=== PATIENT | female | born 1945 | race Two or more races ===

== ENCOUNTER 2016-10-25 20:08 | Emergency (ER) | payer MEDICARE, MEDICAID ==
[~2016-10-25] VITALS: Ht 157.5 cm; Wt 58.1 kg
[2016-10-25 20:52] LABS: BASOPHILS # (AUTO) 0.1 /CMM (0.0-0.2); BASOPHILS % (AUTO) 1.1 % (0.0-2.0); DIFF TOTAL % 100 %; EOSINOPHILS # (AUTO) 0.3 /CMM (0.0-0.7); EOSINOPHILS % (AUTO) 4.4 % (0.0-6.0); HEMATOCRIT 39 % (33-45); HEMOGLOBIN 13.2 g/dL (11.5-14.8); LYMPHOCYTES # (AUTO) 3.4 /CMM (0.8-4.8); LYMPHOCYTES % (AUTO) 53.1 % (20.0-44.0); MEAN CORPUSCULAR HEMOGLOBIN 28 PG (26.0-33.0); MEAN CORPUSCULAR HGB CONC 33 g/dl (31.0-36.0); MEAN CORPUSCULAR VOLUME 84 fL (82-100); MONOCYTES # (AUTO) 0.5 /CMM (0.1-1.30); MONOCYTES % (AUTO) 8.2 % (2.0-12.0); NEUTROPHILS # (AUTO) 2.1 /CMM (1.8-8.9); NEUTROPHILS % (AUTO) 33.2 % (43.0-81.0); PLATELET COUNT (AUTO) 304 /CMM (150-450); RED BLOOD CELL COUNT(AUTO) 4.68 MIL/uL (4.0-5.2); WHITE BLOOD COUNT (AUTO) 6.4 K/uL (4.3-11.0)
[2016-10-25 20:59] LABS: CREATININE 0.8 mg/dL (0.6-1.3); POTASSIUM 3.8 mmol/L (3.5-5.1)
[2016-10-25] MEDS ORDERED: ONDANSETRON HCL/PF 4 MG/2 ML VIAL IVP ONE (21:00)
[2016-10-25] MEDS ORDERED: IV NS 0.9% 500 ML BAG IV ONE (21:00)
[2016-10-25] MEDS ORDERED: ONDANSETRON HCL/PF 4 MG/2 ML VIAL ONE (21:14)
[2016-10-25] MEDS ORDERED: IV SET PRIMARY 1 EA INFUS.SET MC ONE (21:15)
[2016-10-25] MEDS ORDERED: IV NS 0.9% 500 ML IV ONE (21:15)
[2016-10-25 22:45] VITALS: BP 137/76
== END 2016-10-25 22:45 | disposition home or self-care (01) ==
LOC: ER 20:10 → EDSEX 20:10 → ER 22:45
DX: R11.2 Nausea with vomiting, unspecified (principal); G62.9 Polyneuropathy, unspecified; F32.9 Major depressive disorder, single episode, unspecified; E03.9 Hypothyroidism, unspecified; I50.9 Heart failure, unspecified
CPT/HCPCS: 36415; 71010; 80048; 85025; 96374; 99285; A4606; J2405; J7040; Z7610

== ENCOUNTER 2017-11-05 09:29 | Inpatient (IN) | payer MEDICARE, MEDICAID ==
[~2017-11-05] VITALS: Ht 160 cm; Wt 59.9 kg
--- NOTE | 2017-11-05 09:32 | NUR ---
[id number] FROM [facility]: ALOC, LAST SEEN WELL TODAY 0900AM. BS IN FIELD 105. PATIENT IS A/OX 1, BREATHING EVEN AND UNLABORED. BUE AND BLE WEAKNESS. VITALS STABLE. SAFETY AND COMFORT MEASURSE IN PLACE. MD AT BEDSIDE, CODE STROKE INITIATED.
--- NOTE | 2017-11-05 09:38 | NUR ---
PATIENT TAKEN TO CT VIA STRETCHER.
--- NOTE | 2017-11-05 09:43 | NUR ---
PATIENT RETURNED FROM CT IN STABLE CONDITION.
--- NOTE | 2017-11-05 09:45 | NUR ---
Note [email or web address] in EDM - 11/05/17 at 1031 by GISSELLE [id number] FROM [facility]: JAMES, LAST SEEN WELL TODAY 0900AM. BS IN FIELD 105. PATIENT IS A/OX 1, BREATHING EVEN AND UNLABORED. BUE AND BLE WEAKNESS. VITALS STABLE. SAFETY AND COMFORT MEASURSE IN PLACE. MD AT BEDSIDE, CODE STROKE INITIATED.
[2017-11-05] MEDS ORDERED: ACETAMINOPHEN 650 MG/SUPP.RECT RC ONE ×2 (10:00→10:05)
[2017-11-05] MEDS ORDERED: MEROPENEM 1 G in IV NS 0.9% 100 ML IV ONE (10:00)
[2017-11-05] MEDS ORDERED: IV NS 0.9% 500 ML BAG IV ONE (10:00)
--- NOTE | 2017-11-05 10:00 | NUR ---
NEW IV STARTED ON RAC, 18 G. BLOOD DRAWN AND SENT TO LAB.
[2017-11-05 10:04] LABS: BASOPHILS # (AUTO) 0.1 /CMM (0.0-0.2); BASOPHILS % (AUTO) 0.7 % (0.0-2.0); EOSINOPHILS # (AUTO) 0.1 /CMM (0.0-0.7); EOSINOPHILS % (AUTO) 0.6 % (0.0-6.0); HEMATOCRIT 47 % (33-45); HEMOGLOBIN 16.4 g/dL (11.5-14.8); LYMPHOCYTES # (AUTO) 1.8 /CMM (0.8-4.8); LYMPHOCYTES % (AUTO) 11.1 % (20.0-44.0); MEAN CORPUSCULAR HEMOGLOBIN 30 PG (26.0-33.0); MEAN CORPUSCULAR HGB CONC 35 g/dl (31.0-36.0); MEAN CORPUSCULAR VOLUME 84 fL (82-100); MONOCYTES # (AUTO) 0.8 /CMM (0.1-1.30); NEUTROPHILS # (AUTO) 13.6 /CMM (1.8-8.9); NEUTROPHILS % (AUTO) 82.6 % (43.0-81.0); PLATELET COUNT (AUTO) 260 /CMM (150-450); RDW COEFFICIENT OF VARIATION 13.2 (11.5-15.0); RED BLOOD CELL COUNT(AUTO) 5.56 MIL/uL (4.0-5.2); WHITE BLOOD COUNT (AUTO) 16.4 K/uL (4.3-11.0)
[2017-11-05 10:19] LABS: CALCIUM, SERUM 9.3 mg/dL (8.5-10.1); CARBON DIOXIDE 28 mmol/L (21-32); CHLORIDE 95 mmol/L (98-107); CREATININE 2.4 mg/dL (0.6-1.3); GLUCOSE 101 mg/dL (74-106); INR 1.01 (0.85-1.15); POTASSIUM 3.3 mmol/L (3.5-5.1); SODIUM SERUM 139 mmol/L (136-145); UREA NITROGEN, BLOOD 21 mg/dL (7-18)
--- NOTE | 2017-11-05 10:20 | NUR ---
URINE OBTAINED AND SENT TO LAB.
[2017-11-05 10:24] LABS: ALANINE AMINOTRANSFERASE 32 U/L (12-78); ALKALINE PHOSPHATASE 103 U/L (46-116); BILIRUBIN,DIRECT 0.1 mg/dL (0.0-0.2); BILIRUBIN,TOTAL 0.6 mg/dL (0.2-1.0); TOTAL PROTEIN, SERUM 9.8 g/dL (6.4-8.2)
[2017-11-05] MEDS ORDERED: IV NS 0.9% 1,000 ML BAG IV ONE (10:30)
[2017-11-05 10:33] LABS: TROPONIN I 4.839 ng/mL (0.00-0.056)
--- NOTE | 2017-11-05 10:45 | NUR ---
PANEL ON-CALL PAGED
--- NOTE | 2017-11-05 10:48 | NUR ---
Tirso collier in [facility] - 11/05/17 at 1140 by GISSELLE BRAILLE AND TALKING BOOKS CLERK AT BEDSIDE FOR BLOOD DRAW.
[2017-11-05] MEDS ORDERED: VANCOMYCIN 1 GM in IV D5W 250 ML IV ONE (11:00)
[2017-11-05] MEDS ORDERED: ASCO10007 PO (11:15)
[2017-11-05] MEDS ORDERED: MAGN400O6 PO (11:15)
[2017-11-05] MEDS ORDERED: TRAM50TA PO (11:15)
[2017-11-05] MEDS ORDERED: GABA-534 PO (11:15)
[2017-11-05] MEDS ORDERED: ACID1CAP3 PO (11:15)
[2017-11-05] MEDS ORDERED: ONDA4TAB5 PO (11:15)
[2017-11-05] MEDS ORDERED: IBUP-1953 PO (11:15)
[2017-11-05] MEDS ORDERED: MAGN400T6 PO (11:15)
[2017-11-05] MEDS ORDERED: BISA10SU61 RC (11:15)
[2017-11-05] MEDS ORDERED: NA P133E RC (11:15)
[2017-11-05] MEDS ORDERED: ACET325T53 PO (11:15)
[2017-11-05] MEDS ORDERED: MONT10TA22 PO (11:15)
[2017-11-05] MEDS ORDERED: VITA100014 PO (11:19)
[2017-11-05] MEDS ORDERED: CALC-261 PO (11:19)
--- NOTE | 2017-11-05 11:20 | NUR ---
325-2, [facility] T[facility]RES FOR REPORT.
--- NOTE | 2017-11-05 11:26 | NUR ---
REPORT GIVEN TO BRIAN ESQUIVEL FOR GWYN UPON ADMISSION.
[2017-11-05 11:33] LABS: ASPARTATE AMINOTRANSFERASE 86 U/L (15-37); CHOLESTEROL 172 mg/dL (<200); HDL CHOLESTEROL 45 mg/dL (40-60); LDL 113 mg/dL (0-99); TRIGLYCERIDES 96 mg/dL (30-150)
[2017-11-05 11:33] LABS: APPEARANCE,URINE Slightly Cloudy (CLEAR); BILIRUBIN,URINE Negative (NEGATIVE); BLOOD, URINE Trace-intact Ery/uL (NEGATIVE); COLOR,URINE Yellow (YELLOW); KETONES,URINE Negative (NEGATIVE); LEUKOCYTE ESTERASE ,URINE Negative (NEGATIVE); NITRITE, URINE Negative (NEGATIVE); PROTEIN,URINE 100 mg/dl (NEGATIVE); UGLUCOSE Negative (NEGATIVE); UROBILINOGEN,URINE 0.2 EU/dL (0.2)
[2017-11-05 11:41] LABS: BACTERIA,URINE Rare /HPF (None Seen); SQUAMOUS EPITHELIAL CELL,UR Few /HPF (None Seen)
[2017-11-05 11:42] LABS: WBC,URINE 20-30 /HPF (0-3)
--- NOTE | 2017-11-05 12:05 | NUR ---
PATIENT TRANSPORTED TO [facility] VIA ACLS PROTOCOL. RNBRIAN TO PROVIDE GWYN.
[2017-11-05 12:20] VITALS: BP 140/54
[2017-11-05] MEDS ORDERED: BISACODYL SUPP (10 MG) 10 MG/SUPP.RECT SUPP.RECT RC PRN (13:00)
[2017-11-05] MEDS ORDERED: Z GUARD REMEDY 2 OZ OINT TP PRN (13:00)
[2017-11-05] MEDS ORDERED: ACETAMINOPHEN 325 MG TABLET PO PRN (13:00)
[2017-11-05] MEDS ORDERED: ONDANSETRON HCL/PF 4 MG/2 ML VIAL IVP PRN (13:00)
[2017-11-05] MEDS ORDERED: MAGNESIUM HYDROXIDE 30 ML UDC PO PRN (13:00)
[2017-11-05] MEDS ORDERED: IV NS 0.9% 1,000 ML IV SCH (13:00)
[2017-11-05] MEDS ORDERED: TRAMADOL HCL 50 MG TABLET PO PRN (13:00)
[2017-11-05] MEDS ORDERED: VANCOMYCIN 1.25 GM in IV D5W 500 ML IV SCH (13:00)
[2017-11-05] MEDS ORDERED: MAG HYDROX/AL HYDROX/SIMETH 30 ML UDC PO PRN (13:00)
[2017-11-05] MEDS ORDERED: HYDROCODONE/APAP 5/325MG 1 EACH TABLET PO PRN (13:00)
[2017-11-05 13:30] VITALS: BP 140/54
--- NOTE | 2017-11-05 13:30 | NUR ---
ADMISSION NOTES PATIENT ADMITTED FROM ER FEMALE 72 Y/OLD ON TELE, ON Dx OF SEPSIS. TELE MONITOR ON SR-92, PATIENT A/O X1/2, CONFUSED. V/S TAKEN BP-140/54, P-93, R-29, O2-100 ON 3L NC, T-99.1. SKIN ASSESSMENT DONE, SKIN CLEAR. PATIENT INCONTINENT USING DIAPER. NEEDS ATTENDED ND ANTICIPATED, INFUSING NS AT 100ML/HR RIGHT UPPER ARM INTACT. PATIENT DENIED PAIN AT THIS TIME, SCHEDULED MEDICATION ADMINISTERED. DR VASQUEZ AWARE OF NE PATIENT, AND MEDICATION. CALL LIGHT WITHIN TO REACH. CONTINUED MONITORING.
[2017-11-05] MEDS ORDERED: FEE PK DOSING 1 MIN EA MC ONE (13:37)
[2017-11-05] MEDS: ASPIRIN 81 MG TAB.CHEW PO SCH (13:58)
[2017-11-05] MEDS: IV NS 0.9% 1,000 ML IV PRN ×2 (13:59→23:14)
[2017-11-05 16:06] VITALS: BP 125/80
--- NOTE | 2017-11-05 17:00 | NUR ---
RN NOTES PATIENT ON O2-3L NC, NO ACUTE RESPIRATORY DISTRESS, V/S TAKEN BP- 95/54, SCHEDULED MEDICATION ADMINISTERED, ASSIST EATING, PATIENT TURN AND REPOSTION SELF IN THE BED, NEEDS ATTENDED AND ANTICIPATED, INFUSING NS AT 150 ML/HE INTACT, CALL LIGHT WITHIN TO REACH, CONTINUED MONITORING.
[2017-11-05] MEDS ORDERED: CLOPIDOGREL BISULFATE 75 MG TABLET PO ONE (17:30)
[2017-11-05] MEDS: PIPERACILLIN /TAZOBACTAM 2.25 G in IV D5W 50 ML IV SCH ×2 (17:49→23:21)
[2017-11-05] MEDS: GABAPENTIN 300 MG CAPSULE PO SCH (17:52)
[2017-11-05] MEDS ORDERED: ENOXAPARIN SODIUM 30 MG/0.3 ML DISP.SYRIN SQ SCH (18:00)
[2017-11-05] MEDS ORDERED: PIPERACILLIN /TAZOBACTAM 3.375 G in IV NS 0.9% 50 ML IV SCH (18:00)
--- NOTE | 2017-11-05 18:40 | NUR ---
RN NOTES PATIENT STABLE AT THIS TIME, NO ACUTE RESPIRATORY DISTRESS. ENDORSED ONCOMING NURSE FOR GWYN.
--- NOTE | 2017-11-05 19:45 | NUR ---
RN OPENING NOTES PATIENT IS SLEEPING IN BED, EASY TO AROUSE, ALERT AND ORIENTED X2. VS STABLE. NO PAIN OR DISCOMFORT NOTED AT THIS TIME. RESPIRATIONS EVEN AND UNLABORED. NO SOB. IV ACCESS ON RIGHT HAND 18 G PATENT AND INTACT, INFUSING NS AT 150 ML/HR. NO REDNESS OR INFILTRATION NOTED. TELE MONITOR IS IN PLACE, SR 92 BMP. BED IN LOW AND LOCKED POSITION, SIDE RAILS X2. CALL LIGHT WITHIN EASY REACH. WILL CONTINUE TO MONITOR AND ASSESS DURING THE SHIFT.
[2017-11-05 20:00] VITALS: BP 93/48
[2017-11-05] MEDS: METOPROLOL TARTRATE 25 MG TABLET PO SCH (20:38)
[2017-11-05] MEDS ORDERED: ATORVASTATIN 40 MG TABLET PO SCH (22:00)
[2017-11-06] VITALS (42 sets, daily range): BP systolic 54–131; BP diastolic 24–74
[2017-11-06] MEDS: PIPERACILLIN /TAZOBACTAM 2.25 G in IV D5W 50 ML IV SCH (05:28)
--- NOTE | 2017-11-06 06:53 | NUR ---
RN CLOSING NOTES PATIENT IS SLEEPING IN BED, EASY TO AROUSE, ALERT AND ORIENTED X2. VS STABLE. NO PAIN OR DISCOMFORT NOTED AT THIS TIME. RESPIRATIONS EVEN AND UNLABORED. NO SOB. IV ACCESS ON RIGHT HAND 18 G PATENT AND INTACT, INFUSING NS AT 150 ML/HR. NO REDNESS OR INFILTRATION NOTED. TELE MONITOR IS IN PLACE, 110 BMP. SKIN IS CLEAN AND DRY. PATIENT IS TURNED AND REPOSITIONED. ALL NEEDS ARE MET AND MEDICATIONS GIVEN PER MD ORDER. BED IN LOW AND LOCKED POSITION, SIDE RAILS X2. CALL LIGHT WITHIN EASY REACH. WILL ENDORSE TO RN DAY SHIFT FOR GWYN.
--- NOTE | 2017-11-06 07:42 | NUR ---
METAL FITTER OPENING NOTE PATIENT IS ALERT AND ORIENTED x2. NO FACIAL GRIMACING NOTED FOR PAIN AT THIS TIME. NO SOB OR DISTRESS NOTED. ON 3L/MIN OF OXYGEN VIA NASAL CANNULA TOLERATING WELL. BEDREST AT THIS TIME. RIGHT FOREARM IV INTACT AND PATENT NO REDNESS OR SWELLING NOTED, IV FLUIDS RUNNING AT 150 ML/HR TOLERATING WELL. PER SLOT SERVICE SPECIALIST RN AWARE OF POTASSIUM-3.3 NO ORDERS OBTAINED. LAB RESULTS PENDING AT THIS TIME. WILL CONTINUE TO MONITOR
[2017-11-06 08:45] LABS: HEMATOCRIT 41 % (33-45); HEMOGLOBIN 13.9 g/dL (11.5-14.8); MEAN CORPUSCULAR HEMOGLOBIN 29 PG (26.0-33.0); MEAN CORPUSCULAR HGB CONC 34 g/dl (31.0-36.0); MEAN CORPUSCULAR VOLUME 85 fL (82-100); RED BLOOD CELL COUNT(AUTO) 4.86 MIL/uL (4.0-5.2); WHITE BLOOD COUNT (AUTO) 14.1 K/uL (4.3-11.0)
--- NOTE | 2017-11-06 08:45 | NUR ---
RN NOTE NOTIFIED MD ABOUT PATIENT HAVING ONE EPISODE OF EMESIS AND RISK FOR ASPIRATION. MD ORDER FOR SWALLOW EVAL NOTED AND CARRIED OUT AND PATIENT IS CURRENTLY NPO UNTIL FURTHER NOTICE. WILL CONTINUE TO MONITOR THROUGHOUT SHIFT
[2017-11-06 08:46] LABS: BASOPHILS # (AUTO) 0.1 /CMM (0.0-0.2); BASOPHILS % (AUTO) 0.4 % (0.0-2.0); EOSINOPHILS # (AUTO) 0.1 /CMM (0.0-0.7); EOSINOPHILS % (AUTO) 0.7 % (0.0-6.0); LYMPHOCYTES # (AUTO) 2.6 /CMM (0.8-4.8); LYMPHOCYTES % (AUTO) 18.6 % (20.0-44.0); MONOCYTES # (AUTO) 1.3 /CMM (0.1-1.30); NEUTROPHILS # (AUTO) 10.1 /CMM (1.8-8.9); NEUTROPHILS % (AUTO) 71.3 % (43.0-81.0); PLATELET COUNT (AUTO) 223 /CMM (150-450); RDW COEFFICIENT OF VARIATION 14.7 (11.5-15.0)
[2017-11-06 08:51] LABS: CALCIUM, SERUM 8.1 mg/dL (8.5-10.1); CARBON DIOXIDE 21 mmol/L (21-32); CHLORIDE 107 mmol/L (98-107); CREATININE 2.4 mg/dL (0.6-1.3); GLUCOSE 85 mg/dL (74-106); MAGNESIUM 2.2 mg/dL (1.8-2.4); PHOSPHORUS 5.6 mg/dL (2.5-4.9); POTASSIUM 3.8 mmol/L (3.5-5.1); SODIUM SERUM 144 mmol/L (136-145); UREA NITROGEN, BLOOD 32 mg/dL (7-18)
[2017-11-06] MEDS: ASPIRIN 81 MG TAB.CHEW PO SCH (08:58)
[2017-11-06] MEDS: METOPROLOL TARTRATE 25 MG TABLET PO SCH (08:58)
[2017-11-06] MEDS: GABAPENTIN 300 MG CAPSULE PO SCH ×2 (08:59→16:02)
[2017-11-06] MEDS ORDERED: CLOPIDOGREL BISULFATE 75 MG TABLET PO SCH (09:00)
[2017-11-06] MEDS ORDERED: MONTELUKAST SODIUM (10MG) 10 MG TABLET PO SCH (09:00)
--- NOTE | 2017-11-06 11:00 | NUR ---
RN NOTE UPON DOING PATIENT ROUNDING I SAW THAT PATIENT WAS THROWING UP COFFEE GROUND COLOR EMESIS. NOTIFIED CHARGE NURSE AND MD. ORDERS RECEIVED FROM MD, NOTED AND CARRIED OUT AT THIS TIME. WILL CONTINUE TO MONITOR
--- NOTE | 2017-11-06 11:10 | NUR ---
RN NOTE RAPID RESPONSE CALLED, PATIENT DISORIENTED AND UNRESPONSIVE TO COMMANDS. RAPID RESPONSE RESOLVED AT THIS TIME. PATIENT TRANSFERRED TO ICU PER MD ORDERS. REPORT GIVEN TO FOOD SAMPLER AND MD. Addendum: 11/06/17 at 1822 by JOSR HOANG RN PATIENT AT CHANGE OF SHIFT WAS ALERT AND ORIENTED x2 ABLE TO FOLLOW COMMANDS. VITALS WITHIN NORMAL LIMITS. MEDICATIONS AND FOOD HELD DUE TO ASPIRATION, MD MADE AWARE. UPON DOING ROUNDS, I FOUND PATIENT WITH COFFEE GROUND EMESIS x4 ALL OVER HER, UNRESPONSIVE TO COMMANDS. INFORMED CHARGE NURSE, VITALS WERE TAKEN AND MD WAS CALLED FOR ORDERS. ORDERS NOTED AND CARRIED OUT. RAPID RESPONSE WAS THEN CALLED.
--- NOTE | 2017-11-06 11:11 | NUR ---
RN NOTES: PATIENT NOTED TO BE VOMITING. ZOFRAN 4 MG ADMINISTERED. ALFA RN NOTIFIED
--- NOTE | 2017-11-06 11:15 | NUR ---
TRANSFER FROM [facility] - SURG FLOOR DUE TO ALOC, VOMITTING, DESATURATION. PATIENT APPEARS VERY LETHARGIC, BARELY AROUSABLE TO NAME. ATTEMPTS TO OPEN EYES WHEN CALLED. ABG STAT DONE. AGGRESSIVE PULMONARY TOILET DONE BY RT, OBTAINED LARGE AMOUNT OF ORELLANA ,THICK NT SECRETIONS NGT INSERTED TO LIWS WITH LARGE AMOUNT OF COFFEE GROUND OUTPUT.
[2017-11-06 11:21] LABS: ABG BASE EXCESS -9.7 mmol/L; ABG OXYGEN SATURATION 97.3 % (92.0-98.5); ABG PCO2 24.5 mmHg (35.0-45.0); ABG PH 7.363 (7.350-7.450); ABG PO2 100.8 mmHg (75.0-100.0); AaDO2 443.9 mmHg; COHb 0.2 % (0.5-1.5); MetHb 0.6 % (0.0-1.5); O2Hb 96.5 % (94.0-97.0); SITE, ABG Right Femoral; VENT MODE, BG NRB 80%
[2017-11-06] MEDS ORDERED: PANTOPRAZOLE 80 MG in IV NS 0.9% 500 ML IV PRN (11:30)
--- NOTE | 2017-11-06 11:45 | NUR ---
PATIENT SEEN BY DR. CORONADO-AWARE OF ABG RESULTS. KEEP PATIENT ON O2 AT 6L N/C AT THIS TIME.
--- NOTE | 2017-11-06 11:45 | NUR ---
SPOKE TO DR. VASQUEZ VIA PHONE. MADE AWARE OF SBP 70'S. ST 130'S. NGT OUTPUT. ORDERS RECEIVED FOR NS 2L BOLUS STAT.
[2017-11-06 12:11] LABS: BASOPHILS % (AUTO) 0.4 % (0.0-2.0); EOSINOPHILS % (AUTO) 0.4 % (0.0-6.0); HEMATOCRIT 44 % (33-45); HEMOGLOBIN 14.7 g/dL (11.5-14.8); LYMPHOCYTES # (AUTO) 2.8 /CMM (0.8-4.8); LYMPHOCYTES % (AUTO) 23.8 % (20.0-44.0); MEAN CORPUSCULAR HEMOGLOBIN 28 PG (26.0-33.0); MEAN CORPUSCULAR HGB CONC 33 g/dl (31.0-36.0); MEAN CORPUSCULAR VOLUME 85 fL (82-100); MONOCYTES # (AUTO) 1.1 /CMM (0.1-1.30); MONOCYTES % (AUTO) 9.6 % (2.0-12.0); NEUTROPHILS # (AUTO) 7.8 /CMM (1.8-8.9); NEUTROPHILS % (AUTO) 65.8 % (43.0-81.0); PLATELET COUNT (AUTO) 211 /CMM (150-450); RDW COEFFICIENT OF VARIATION 15.2 (11.5-15.0); RED BLOOD CELL COUNT(AUTO) 5.19 MIL/uL (4.0-5.2); WHITE BLOOD COUNT (AUTO) 11.8 K/uL (4.3-11.0)
--- NOTE | 2017-11-06 12:15 | NUR ---
PATIENT SEEN AND EXAMINED BY DR. VASQUEZ. MD ORDERED DNR/DNI PER PATIENT POSLT. CONTINUE NS BOLUS X 2 L FOLLOWED BY 150 ML/HR. NO PRESSORS AT THIS TIME. OKAYED NGT CONNECTED TO LIWS. AWARE OF LARGE AMOUNT OF COFFEE GROUND OUTPUT. SPOKE TO UMESH SNIEDR NP FOR GI CONSULT.
[2017-11-06] MEDS ORDERED: IV NS 0.9% 1,000 ML BAG IV PRN (12:30)
[2017-11-06 12:42] LABS: INR 1.16 (0.87-1.13)
[2017-11-06 12:43] LABS: D-DIMER 7.3 mg/L(FEU (0.17-0.50)
[2017-11-06] MEDS: IV NS 0.9% 1,000 ML IV PRN ×5 (12:48→18:39)
[2017-11-06] MEDS ORDERED: PIPERACILLIN /TAZOBACTAM 2.25 G in IV NS 0.9% 50 ML IV SCH (13:00)
[2017-11-06 13:48] LABS: ALKALINE PHOSPHATASE 92 U/L (46-116); ASPARTATE AMINOTRANSFERASE 117 U/L (15-37); BILIRUBIN,TOTAL 0.5 mg/dL (0.2-1.0); CALCIUM, SERUM 8.3 mg/dL (8.5-10.1); CARBON DIOXIDE 18 mmol/L (21-32); CHLORIDE 108 mmol/L (98-107); CREATININE 2.6 mg/dL (0.6-1.3); GLUCOSE 68 mg/dL (74-106); SODIUM SERUM 142 mmol/L (136-145); UREA NITROGEN, BLOOD 38 mg/dL (7-18)
[2017-11-06 13:49] LABS: ALANINE AMINOTRANSFERASE 33 U/L (12-78); ALBUMIN 2.9 g/dL (3.4-5.0); MAGNESIUM 2.3 mg/dL (1.8-2.4); POTASSIUM 4.3 mmol/L (3.5-5.1); TOTAL PROTEIN, SERUM 8.1 g/dL (6.4-8.2)
--- NOTE | 2017-11-06 14:30 | NUR ---
N NOTES DR VASQUEZ NOTIFIED REGARDING LA =5.1 AND TROPONIN =3.27, NEW ORDER RECEIVED TO REPEAT LA AT 1700. CONTINUE TO MONITOR.
[2017-11-06 15:11] LABS: ABG BASE EXCESS -8.9 mmol/L; ABG OXYGEN SATURATION 97.5 % (92.0-98.5); ABG PCO2 26.2 mmHg (35.0-45.0); ABG PH 7.366 (7.350-7.450); ABG PO2 109.7 mmHg (75.0-100.0); AaDO2 109.4 mmHg; COHb 0.3 % (0.5-1.5); MetHb 0.5 % (0.0-1.5); O2Hb 96.7 % (94.0-97.0); SITE, ABG Right Radial
[2017-11-06] MEDS ORDERED: VANCOMYCIN 1 GM in IV D5W 250 ML IV SCH (16:00)
[2017-11-06] MEDS ORDERED: ACETAMINOPHEN 325 MG TABLET PO PRN (16:00)
--- NOTE | 2017-11-06 16:00 | NUR ---
RN NOTES T=101.6 , DR VASQUEZ NOTIFIED ,CONTINUE COOLING MEASURES. ORDER RECEIVED FOR TYLENOL SUPPOSITORY. WILL MEDICATED PER MD ORDER .
[2017-11-06] MEDS ORDERED: ACETAMINOPHEN 650 MG/SUPP.RECT RC PRN (16:30)
--- NOTE | 2017-11-06 17:28 | NUR ---
Patient resides at [facility] rehab [phone]. She has hx of dementia, requires max to total assist with adl's . Currently on 7days bedhold at [facility]. Patient was transferred to ICU this am after rapid response called. Addendum: 11/06/17 at 2306 by HARLAN BADILLO RN Amended: Links added.
--- NOTE | 2017-11-06 17:30 | NUR ---
RN NOTES LA = 5.3, BP =88/49 HR= 123 DR VASQUEZ NOTIFIED ,NEW ORDER RECEIVED FOR 2 MORE IVF NS BOLUS.
[2017-11-06] MEDS ORDERED: NOREPINEPHRINE 16 MG in IV D5W 500 ML IV PRN (18:00)
[2017-11-06] MEDS ORDERED: IV NS 0.9% 1,000 ML IV PRN ×2 (18:00→19:00)
--- NOTE | 2017-11-06 18:08 | NUR ---
RN NOTES BP= 97/49 HR 120 , T=100.7, PT RECEIVING BOLUS NS AT THIS TIME .
--- NOTE | 2017-11-06 19:27 | NUR ---
RN NOTES DR VASQUEZ AND DR ENCISO NOTIFIED REGARDING TROPONIN =5.787,
--- NOTE | 2017-11-06 19:55 | NUR ---
RN NOTES RECEIVED PT ON BED WITH LABORED BREATHING ON O2 6LPM VIA NC SATING 90% UNRESPONSIVE/ NOT FOLLOWING COMMAND. ST 117 ON TELE MONITOR. WITH NGT ON THE RIGHT NARES. CONNECTED TO LIS WITH BLACK COLOR OUTPUT. IV SITE ON RFA G 18 RUNNING WITH IVF BOLUS AT THIS TIME. PER PREVIOUS NURSE. HIGH TROPONIN AND HIGH LACTIC ACID REPORTED BY PREVIOUS NURSE WELL LOW BP. LAST BAG OF IV BOLUS WILL BE GIVEN AND WILL CONTINUE WITH IVF ORDERED. KEPT PT CLEAN AND COMFORTABLE IN BED. WILL CLOSELY MONITOR
--- NOTE | 2017-11-06 22:02 | NUR ---
RN NOTES 20:45 - NOTED SATURATION IS DROPPING TO 70'S PT IS ON LABORED BREATHING SUCTIONED MOUTH TO REMOVE SECRETION. PLACED ON SIMPLE MASK AND INCREASED TO 8LPM SATURATION WENT UP ONLY AT 80'S. WHILE ABOUT TO CHANGE THE PATIENT MASK NOTED PT WITH AGONAL BREATHING , BREATHING STOP FOR AWHILE AND BREATH AGAIN FOR A SECOND AND GOT THE ATTENTION OF THE CHARGE NURSE. THEN PT STOP BREATHING V/S UNREADABLE NO PULSE IN ANY AREA. TELE MONITOR REVEALS ASYSTOLE AT 20:58PM CHARGE NURSE PRONOUNCE PT IS . EXHIBITION CARVER MARCK MADE AWARE AND ADMITTING ED INFORMED. 2099 - CALLED AND LEFT MESSAGE TO LOTTIE GUZMAN SENIOR TECHNICAL PROGRAM MANAGER AND INFORMED ABOUT PT . WHILE OTHER STAFF IS DOING POST MORTEM CARE 2101 - CALLED MANUELA SIERRAER AND SPOKE TO STEWART STATING THAT THE BROTHER IS OUT OF THIS AREA. INFORMED ABOUT THE PT AND SHE WILL LET HER KNOW. 2115 - CALLED [facility] SPOKE TO TEREZA AND GIVE INFO ABOUT THE PT. AND GAVE REFERRAL ID [id number] - MANUELA BROTHER CALLED AND REQUESTING IF THEY CAN SEE HIS SISTER AND THEY WILL COME BEFORE 2 HOURS. CHARGE NURSE MADE AWARE AND WILL WAITED FOR THE FAMILY TO COME TO SEE THE PATIENT. POST MORTEM CARE DONE WITH THE HELP OF THE OTHER NURSE.
--- NOTE | 2017-11-06 22:30 | NUR ---
ICU/RN- BROTHER HERE TO SEE PT.
--- NOTE | 2017-11-06 23:05 | NUR ---
ICU/RN- DOWN TO [facility] PER PROTOCOL.
== END 2017-11-06 22:54 | disposition expired | DRG 871 ==
LOC: ER 09:30 → MED 11:35 → TELE 12:34 → MED 11-06 09:41 → ICU 11-06 11:11
PROVIDERS: ADMIT Internal Medicine; ATTEND Internal Medicine
PROC: 02HV33Z Insertion of Infusion Device into Superior Vena Cava, Percutaneous Approach (ICD-10-PCS; principal; 2017-11-06)
PROC: B548ZZA Ultrasonography of Superior Vena Cava, Guidance (ICD-10-PCS; 2017-11-06)
DX: A41.9 Sepsis, unspecified organism (principal); I21.A1 Myocardial infarction type 2; D65 Disseminated intravascular coagulation [defibrination syndrome]; N17.0 Acute kidney failure with tubular necrosis; J96.01 Acute respiratory failure with hypoxia; K92.2 Gastrointestinal hemorrhage, unspecified; E87.2 Acidosis; R65.21 Severe sepsis with septic shock; G92 Toxic encephalopathy; I13.0 Hypertensive heart and chronic kidney disease with heart failure and stage 1 through stage 4 chronic kidney disease, or unspecified chronic kidney disease; N39.0 Urinary tract infection, site not specified; R57.1 Hypovolemic shock; N18.9 Chronic kidney disease, unspecified; I50.9 Heart failure, unspecified; E78.5 Hyperlipidemia, unspecified; E03.9 Hypothyroidism, unspecified; E87.6 Hypokalemia; F03.90 Unspecified dementia, unspecified severity, without behavioral disturbance, psychotic disturbance, mood disturbance, and anxiety; I25.10 Atherosclerotic heart disease of native coronary artery without angina pectoris; K21.9 Gastro-esophageal reflux disease without esophagitis; Z66 Do not resuscitate; F32.9 Major depressive disorder, single episode, unspecified; F39 Unspecified mood [affective] disorder; G62.9 Polyneuropathy, unspecified; G89.29 Other chronic pain
CPT/HCPCS: 36415; 36600; 70450-TC; 71045-TC; 80048-TC; 80053-TC; 80061-TC; 80076-TC; 80202-TC; 81000-TC; 82962-TC; 83605-TC; 83735-TC; 84100-TC; 84484-TC; 85025-TC; 85378-TC; 85385-TC; 85610-TC; 85730-TC; 86850-TC; 87040-TC; 87081-TC; 87086-TC; 93307-TC; A4216; A4606; C1751; C9113; J1650; J2185; J2405; J2543; J3370; J7030; J7040; J7060; Z7610